=== PATIENT | female | born 2005 | race Caucasian/White ===

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

== ENCOUNTER → 2025-02-18 | Outpatient (CLI) | payer OTHER ==
[~2025-02-18] VITALS: Ht 160 cm; Wt 68.0 kg
[~2025-02-18] MED LIST: CEPH-558 PO; DOXY-354 PO
[2025-02-18 10:07] VITALS: BP 125/76; PULSE 116; RESP 19; TEMP 98.1; O2SAT 97
== END | disposition home or self-care (01) ==
LOC: SRCNTR 09:56
PROVIDERS: ATTEND Internal Medicine
DX: J06.9 Acute upper respiratory infection, unspecified (principal); Z87.440 Personal history of urinary (tract) infections
CPT/HCPCS: G0463; Z7500